=== PATIENT | female | born 1950 | race Caucasian/White ===

== ENCOUNTER 2017-08-04 07:39 | Day surgery (SDC) | payer BC ==
[2017-08-01 13:30] LABS: ASCORBIC ACID (UR NOT ORDER) NEG (NEG); BILIRUBIN, URINE NEGATIVE (NEG); KETONE, URINE NEGATIVE (NEG); LEUKOCYTE ESTERASE(NOT OR NEG (NEG); WBC (NOT ORDERED) (RFLEX) 2 (0-5)
[2017-08-01 13:35] LABS: HEMATOCRIT 32.7 % (36.0-48.0); HEMOGLOBIN 11.1 g/dL (12.0-16.0)
[2017-08-01 13:52] LABS: BUN (BLOOD UREA NITROGEN) 17 MG/DL (6-23); CALCIUM, SERUM 8.8 MG/DL (8.5-10.4); CHLORIDE, SERUM 102 MMOL/L (96-112); CO2 (CARBON DIOXIDE) 26 MMOL/L (24-34); CREATININE 1.06 MG/DL (0.55-1.02); GFR AFRICAN AMERICAN 64 ML/MIN (>=60); GFR NON AFRICAN AMERICAN 55 ML/MIN (>=60); GLUCOSE, SERUM 195 MG/DL (60-99); POTASSIUM, SERUM 4.1 MMOL/L (3.5-5.3); SODIUM, SERUM 137 MMOL/L (135-148)
[2017-08-01 15:14] LABS: BASOPHILS 0.1 %; BASOPHILS ABSOLUTE 0.01 10/3/uL (0.0-0.16); EOSINOPHILS 3.8 %; EOSINOPHILS ABSOLUTE 0.31 10/3/uL (0.0-0.53); IMMATURE GRANULOCYTES 0.4 %; IMMATURE GRANULOCYTES ABSOLUTE 0.03 10/3/uL (0.0-0.11); LYMPHOCYTES 20.8 %; MANUAL DIFF NO %; MEAN CORPUS HGB CONC 33.2 g/dL (32.0-36.0); MEAN CORPUSCULAR HEMOGLOB 29.1 pg (26.0-34.0); MEAN CORPUSCULAR VOLUME 87.6 fL (80-100); MEAN PLATELET VOLUME 9.4 fL (9.2-13.0); MONOCYTES 5.4 %; MONOCYTES ABSOLUTE 0.44 10/3/uL (0.21-1.20); NEUTROPHILS 69.5 %; NEUTROPHILS ABSOLUTE 5.67 10/3/uL (2.02-8.40); PLATELET COUNT 247 10/3/uL (150-400); RBC DISTRIBUTION WIDTH 13.4 % (12.0-16.0); RED CELL COUNT 3.78 10/6/uL (4.0-5.6); WHITE BLOOD CELLS 8.2 10/3/uL (4.5-10.5)
[~2017-08-04] VITALS: Ht 154.9 cm; Wt 83.6 kg
--- NOTE | ~2017-08-04 | OP ---
Record Of Operation [facility] [address] [facility] [place] [id number] NAME: TOYIN TORRE : 54 STATUS : REG [facility] PAT#: [id number] AGE: 66 ADM/REG DATE : 08/04/17 MR#: [id number] REPORT SERV DATE: 08/04/17 DICTATED BY: LYLE MALCOLM DATE: 08/04/17 REPORT STATUS : Draft TRANSCRIBED BY: GENE DATE: 08/04/17 DATE OF PROCEDURE: 08/04/2017 PREOPERATIVE DIAGNOSIS: Right renal stone. POSTOPERATIVE DIAGNOSIS: Right renal stone. PROCEDURE: Right renal ESWL and IVP on the table. ANESTHESIA: MAC. SPECIMENS: None. ESTIMATED BLOOD LOSS: None. DISPOSITION: To Day Surgery in good condition. HISTORY: A 66-year-old woman who presented to me with a large renal stone several months ago. She underwent her original ESWL on 06/12/2017. She presents today for her second ESWL on the stone. She has a lightly calcified 1 cm ovoid fragment in the renal pelvis. She presents today for the above-stated procedure. PROCEDURE IN DETAIL: After consent was obtained, the patient was taken to the lithotripsy table and placed on the table in a supine position. We could not definitively see her stone on two planes, so IV contrast was given. We targeted the right renal pelvis on 2 planes. MAC anesthetic was induced. She then received 2500 shocks at a maximum energy level of 5 and a rate of 90 from the anterior position on the Dornier II machine. She tolerated the procedure well. She was then taken to phase 2 in good condition after awakening from her anesthetic. She will be discharged today and follow up in the office in two to three weeks with a KUB. All of her prescriptions were given to her at her office visit. CLAY Lyle Malcolm M.D. / [id number] CC: Cedrick Allen M.D.
[~2017-08-04 07:39] MED LIST: ASA5GR PO; ASAB PO; COREG12 PO; COREG25 PO; FIORICET-COD 51 EACH PO; GLUCPH PO; KLOR-CON M2020 MEQ PO; L20 PO; LEVEMFLXPN SC; LEVEMIR SC; LIPITOR40 PO; LOTE10 PO; LOTREL1 CA1 PO; MIDODRINE10 MG OR; MIDODRINE10 MG PO; MIDRIN PO; NEXIUM40 PO; P10 PO; PLAVIX PO; PROAIR HFA INH; TOUJEO SQ; ZANTAC150 MG PO; ZOL50 PO
[2017-08-04 09:03] LABS: PFA (COL/EPI) 98 SEC (72-180)
== END 2017-08-04 14:54 | disposition home or self-care (01) ==
LOC: SDC 07:39
PROVIDERS: Urology
DX: N20.0 Calculus of kidney (principal); I25.10 Atherosclerotic heart disease of native coronary artery without angina pectoris; I11.0 Hypertensive heart disease with heart failure; I50.9 Heart failure, unspecified; E66.9 Obesity, unspecified; E11.9 Type 2 diabetes mellitus without complications; K21.9 Gastro-esophageal reflux disease without esophagitis; I25.2 Old myocardial infarction; Z68.34 Body mass index [BMI] 34.0-34.9, adult; Z95.5 Presence of coronary angioplasty implant and graft; Z88.2 Allergy status to sulfonamides; Z88.1 Allergy status to other antibiotic agents; Z79.82 Long term (current) use of aspirin; Z79.4 Long term (current) use of insulin; Z79.899 Other long term (current) drug therapy
CPT/HCPCS: 50590; 74000; 80048; 81001; 82962; 85025; 85576; 93005; J2405; J3010; Q9967